=== PATIENT | female | born 1955 | race Caucasian/White ===

== ENCOUNTER → 2017-04-04 | Emergency (ER) | payer OTHER ==
[~2017-04-04] VITALS: Ht 157.5 cm; Wt 63.5 kg
== END | disposition home or self-care (01) ==
LOC: ER 18:42
DX: S01.112A Laceration without foreign body of left eyelid and periocular area, initial encounter (principal); S80.02XA Contusion of left knee, initial encounter; W45.8XXA Other foreign body or object entering through skin, initial encounter; Y93.89 Activity, other specified; Y92.89 Other specified places as the place of occurrence of the external cause; Y99.8 Other external cause status

== ENCOUNTER 2020-04-17 14:37 | Outpatient (CLI) | payer OTHER | END 2020-04-17 14:47 | disposition home or self-care (01) | LOC: SONOGRAMA 14:37 | PROVIDERS: ATTEND Internal Medicine | DX: E04.2 Nontoxic multinodular goiter (principal) ==

== ENCOUNTER 2020-04-18 07:58 | Outpatient (CLI) | payer OTHER | END 2020-04-18 08:03 | disposition home or self-care (01) | LOC: LAB 07:58 | PROVIDERS: ATTEND Internal Medicine | DX: E03.8 Other specified hypothyroidism (principal); I10 Essential (primary) hypertension; E78.49 Other hyperlipidemia; E55.9 Vitamin D deficiency, unspecified; E11.65 Type 2 diabetes mellitus with hyperglycemia ==

== ENCOUNTER 2020-06-09 12:14 | Outpatient (CLI) | payer OTHER | END 2020-06-09 15:21 | disposition home or self-care (01) | LOC: TOM 12:14 | PROVIDERS: ATTEND Internal Medicine Cardiovascular Disease | DX: G93.89 Other specified disorders of brain (principal) ==

== ENCOUNTER 2020-06-30 07:14 | Outpatient (CLI) | payer OTHER | END 2020-06-30 07:18 | disposition home or self-care (01) | LOC: MRI 07:14 | PROVIDERS: ATTEND Internal Medicine Cardiovascular Disease | DX: R51.9 Headache, unspecified (principal); R42 Dizziness and giddiness | CPT/HCPCS: 70551 ==

== ENCOUNTER → 2020-09-02 06:23 | Outpatient (CLI) | payer OTHER | END | disposition home or self-care (01) | LOC: LAB 06:23 | PROVIDERS: ATTEND Specialist | DX: R00.2 Palpitations (principal); E78.5 Hyperlipidemia, unspecified ==

== ENCOUNTER 2021-04-13 07:38 | Outpatient (CLI) | payer OTHER | END 2021-04-13 15:00 | disposition home or self-care (01) | LOC: LAB 07:38 | PROVIDERS: ATTEND Specialist | DX: E78.49 Other hyperlipidemia (principal) ==

== ENCOUNTER 2021-05-11 09:07 | Outpatient (CLI) | payer OTHER | END 2021-05-11 09:16 | disposition home or self-care (01) | LOC: LAB 09:07 | DX: N91.2 Amenorrhea, unspecified (principal); E78.5 Hyperlipidemia, unspecified; E34.9 Endocrine disorder, unspecified; N95.1 Menopausal and female climacteric states; E23.6 Other disorders of pituitary gland; R19.00 Intra-abdominal and pelvic swelling, mass and lump, unspecified site; N39.0 Urinary tract infection, site not specified; E55.9 Vitamin D deficiency, unspecified; N73.9 Female pelvic inflammatory disease, unspecified; A60.04 Herpesviral vulvovaginitis ==

== ENCOUNTER 2021-05-11 09:28 | Outpatient (CLI) | payer OTHER | END 2021-05-11 09:29 | disposition home or self-care (01) | LOC: MAMO-SONO 09:28 | PROVIDERS: ATTEND Obstetrics & Gynecology | DX: R10.2 Pelvic and perineal pain (principal); R10.30 Lower abdominal pain, unspecified; N64.4 Mastodynia; N63.0 Unspecified lump in unspecified breast ==

== ENCOUNTER 2025-03-18 09:16 | Outpatient (CLI) | payer OTHER | END 2025-03-18 09:20 | disposition home or self-care (01) | LOC: MAMO-SONO 09:16 | PROVIDERS: ATTEND Obstetrics & Gynecology | DX: N64.4 Mastodynia (principal); N63.0 Unspecified lump in unspecified breast; R10.20 Pelvic and perineal pain unspecified side; R10.30 Lower abdominal pain, unspecified ==

== ENCOUNTER 2025-03-22 09:14 | Outpatient (CLI) | payer OTHER | END 2025-03-22 09:15 | disposition home or self-care (01) | LOC: NUCLEAR 09:14 | PROVIDERS: ATTEND Obstetrics & Gynecology | DX: M81.0 Age-related osteoporosis without current pathological fracture (principal) ==

== ENCOUNTER 2025-03-22 10:17 | Outpatient (CLI) | payer OTHER | END 2025-03-22 10:31 | disposition home or self-care (01) | LOC: SONOGRAMA 10:17 | PROVIDERS: ATTEND Obstetrics & Gynecology | DX: R10.20 Pelvic and perineal pain unspecified side (principal); R10.30 Lower abdominal pain, unspecified ==